=== PATIENT | female | born 1990 | race Caucasian/White ===

== ENCOUNTER 2019-03-28 19:24 | Emergency (ER) | payer BC ==
[~2019-03-28] VITALS: Ht 152.4 cm; Wt 61.2 kg
[2019-03-28 19:35] VITALS: BP 106/72
--- NOTE | 2019-03-28 19:41 | PHYS DOC ---
Past Medical History Past Medical History: Endometriosis Past Surgical History: Other Additional Past Surgical Histo: ENDOMETRIOSIS Alcohol Use: Occasionally Drug Use: None Adult General Chief Complaint Chief Complaint: ANKLE PROBLEM [facility] [place] Patient is a 28 year old female presents for eval of left ankle pain x1 month. unknown injury. pain c weight bearing to lateral aspect of ankle Review of Systems Review of Systems Constitutional: Denies fever or chills [] Eyes: Denies change in visual acuity, redness, or eye pain [] HENT: Denies nasal congestion or sore throat [] Respiratory: Denies cough or shortness of breath [] Cardiovascular: No additional information not addressed in HPI [] GI: Denies abdominal pain, nausea, vomiting, bloody stools or diarrhea [] : Denies dysuria or hematuria [] Musculoskeletal: Denies back pain + left ankle pain [] Integument: Denies rash or skin lesions [] Neurologic: Denies headache, focal weakness or sensory changes [] Endocrine: Denies polyuria or polydipsia [] All other systems were reviewed and found to be within normal limits, except as documented in this note. Physical Exam Physical Exam Constitutional: Well developed, well nourished, no acute distress, non-toxic appearance. [] Skin: Warm, dry, no erythema, no rash. [] Extremities: + left lateral ankle tenderness c weight bearing, no palpable tenderness, no swelling, no cyanosis, no clubbing, ROM intact. [] Neurologic: Alert and oriented X 3, normal motor function, normal sensory function, no focal deficits noted. [] Psychologic: Affect normal, judgement normal, mood normal. [] Current Patient Data Vital Signs Vital Signs Date Time Temp Pulse Resp B/P (MAP) Pulse Ox O2 Delivery O2 Flow Rate FiO2 03/28/19 19:35 98.4 81 16 106/72 (83) 98 Room Air 98.4 EKG EKG [] Radiology/Procedures Radiology/Procedures [] Impressions: Left ankle x-rays 3 views HISTORY: Left lateral ankle pain for one month. FINDINGS: No fracture or dislocation. No talus osteochondral lesion. Tiny sclerotic ossicle at the distal tibiofibular syndesmosis perhaps due to an old injury. The soft tissues are unremarkable. IMPRESSION: No acute osseous injury. Electronically signed by: Alan Rose MD (03/28/2019 8:34 PM) [facility] Course & Med Decision Making Course & Med Decision Making Pertinent Labs and Imaging studies reviewed. (See chart for details) [ice and elevate, NSAIDs, f/u c pcp] Gladis Disclaimer Dragon Disclaimer This electronic medical record was generated, in whole or in part, using a voice recognition dictation system. Departure Departure Impression: Primary Impression: Ankle sprain Disposition: HOME, SELF-CARE Condition: STABLE Referrals: NO PCP (PCP) Patient Instructions: Ankle Sprain, [id number] Problem Qualifiers Primary Impression: Ankle sprain Encounter type: initial encounter Involved ligament of ankle: unspecified ligament Laterality: left Qualified Codes: S93.402A - Sprain of unspecified ligament of left ankle, initial encounter ESTELA ROBERTS [employer] Mar 28, 2019 19:41
--- NOTE | 2019-03-28 20:37 | RAD ---
Left ankle x-rays 3 views HISTORY: Left lateral ankle pain for one month. FINDINGS: No fracture or dislocation. No talus osteochondral lesion. Tiny sclerotic ossicle at the distal tibiofibular syndesmosis perhaps due to an old injury. The soft tissues are unremarkable. IMPRESSION: No acute osseous injury. Electronically signed by: Alan Rose MD (03/28/2019 8:34 PM) [facility]
== END 2019-03-28 20:46 | disposition home or self-care (01) ==
LOC: ER 19:24
DX: S93.492A Sprain of other ligament of left ankle, initial encounter (principal); X58.XXXA Exposure to other specified factors, initial encounter; Y93.89 Activity, other specified; Y92.89 Other specified places as the place of occurrence of the external cause; Y99.8 Other external cause status
CPT/HCPCS: 73610; 99284